=== PATIENT | male | born 1950 | race Two or more races ===

== ENCOUNTER 2025-01-29 19:28 | Emergency (ER) | payer OTHER, MEDICARE, SELFPAY ==
[2025-01-29 19:30] VITALS: BMI 23.6
[2025-01-29 19:39] VITALS: BP 195/109; PULSE 112; RESP 19; TEMP 37.2; O2SAT 98
--- NOTE | 2025-01-29 19:50 | PD.EDRME ---
Rapid Medical Screening Exam RME Arrival date/time: 01/29/25 19:28 Chief Complaint: Nausea/Vomiting/Diarrhea Time Seen by Provider: 01/29/25 19:45 Vital signs: Vital Signs Temperature 98.9 F 01/29/25 19:39 Pulse Rate 112 H 01/29/25 19:39 Respiratory Rate 19 01/29/25 19:39 Blood Pressure 195/109 H 01/29/25 19:39 Pulse Oximetry (%) 98 01/29/25 19:39 Oxygen Delivery Method Room Air 01/29/25 19:39 Vital signs reviewed by provider: Yes RME Narrative: 74-year-old male with a past medical history of colon cancer as well as urostomy bag presents to the ED with a 2 day history of nausea and vomiting. He denies any abdominal pain. He denies any chest pain. He is concerned about dehydration. I have greeted and performed a focused initial assessment of this patient. A comprehensive ED assessment and evaluation of the patient, analysis of all test results, and completion of the medical decision making process will be conducted by additional ED providers.
[2025-01-29] MEDS: ONDANSETRON ODT 4 MG TABRAP PO (20:11)
--- NOTE | 2025-01-29 20:32 | XR_ITS ---
Examination: AP chest single view TECHNIQUE: AP portable upright chest single view Date and time: January 29, 2025 0837 hours INDICATIONS: Nausea vomiting beginning 2 days ago. FINDINGS: Normal heart size Lungs are clear. Right internal jugular Port-A-Cath tip satisfactory position Moderate osteopenia IMPRESSION: No active disease.
--- NOTE | 2025-01-29 20:32 | PD.EDNV ---
Nausea/Vomit./Diarrhea-RME/HPI General Chief complaint: Nausea/Vomiting/Diarrhea Stated complaint: NV STARTED YESTERDAY MORNING Time Seen by Provider: 01/29/25 19:45 Arrival date/time: 01/29/25 19:28 RME / HPI RME / HPI Narrative: 74-year-old male with a past medical history of colon cancer as well as urostomy bag presents to the ED with a 2 day history of nausea and vomiting. He denies any abdominal pain. He denies any chest pain. He is concerned about dehydration. I have greeted and performed a focused initial assessment of this patient. A comprehensive ED assessment and evaluation of the patient, analysis of all test results, and completion of the medical decision making process will be conducted by additional ED providers. This section includes all my notes and documentations, including HPI, PE, and ED course. Jez Cheney MD HPI: 74 y/o male with Hx of Colorectal CA, Bladder CA, and Prostate CA and SHx of Prostatectomy, Cystectomy with Urostomy, and Colectomy over 5 years ago presents with vomiting s/p taking Celexa about 24 hours ago. No abdominal pain, fever, and cough. No diarrhea. Feels dehydrated with dark urine in the urostomy bag. No other complaints. ROS: All negative except as documented in HPI. Physical Exam: General: Alert and oriented. No acute distress when remaining still. High BP noted. Eyes: Conjunctivae and lids clear. ENT: No nasal congestion. Neck: Supple. Heart: Sinus tachycardia noted. Lungs: No respiratory distress. Good air movement. No rhonchi, wheezing, rales. Abdomen: Soft and nontender. Urostomy noted. Normal bowel sounds. No distension. No rebound or guarding. Back: No CVA tenderness. Skin: Warm and dry. Neuro: Alert and oriented X 3. I reviewed all diagnostic test results: My interpretation of the chest x-ray is NAD. Blood tests remarkable for WBC 16.1, Cr 1.4. UA showed positive leukocyte Estrace, 37 RBC, 1704 WBC, and 3+ bacteria. Covid/Influenza: Negative. At this point, diagnoses include: stomach flu, UTI, and uncontrolled hypertension. Treatment here included: IV fluid, Zofran, Rocephin, clonidine, and hydralazine. Significant improvement noted. Recommended outpatient care. Based on my best medical judgment, made decision no further evaluation or treatment indicated at this time. Patient understands and agrees to the discharge instructions customized and printed, see below. Discharge Instructions from Dr. Cheney: 1. After evaluation, you have stomach flu and urinary tract infection. 2. Take Cipro to kill the germs. 3. Your job is to stay hydrated.? Zofran for nausea/vomiting.? Increase oral fluid and maintain clear urine.? If dark or yellow, increase oral fluid. 4. Do not take any medications to stop your diarrhea.? But try to replenish the fluid and electrolytes you are losing. 5. Some good choices are water (but not only water because it will cause electrolyte abnormalities), sports drinks like Gatorade (with less sugar content), coconut water, chicken stock, and other fluid with electrolytes (like Pedialyte). 6. Take clonidine 0.1 mg pills as needed based on SBP (higher number of BP). Check your BP twice daily (about 12 hours apart). If SBP > 140, take one pill. If SBP > 160, take two pills. If SBP > 180, take three pills. If SBP > 200, take four pills. 7. See a private doctor on 01/31/2025 for recheck and further care. Ask to review all test results and official radiology reports, to make sure you receive all necessary follow-ups and monitoring. Ask for help until you are completely better. 8. Seek immediate medical care with worsening or with any concerns. Jez Cheney MD Related Data Previous Rx's ?Medication ?Instructions ?Recorded cefdinir 300 mg capsule 300 mg PO BID #14 caps 01/29/25 ciprofloxacin HCl 500 mg tablet 500 mg PO BID 5 days #10 tabs 01/29/25 (Cipro) ondansetron 4 mg disintegrating 4 mg PO TID PRN nausea and 01/29/25 tablet vomiting 30 days #10 tabs Allergies Allergy/AdvReac Type Severity Reaction Status Date / Time No Known Allergies Allergy Verified 01/29/25 19:34 Review of Systems Review of Systems Systems Reviewed: All systems reviewed, normal except as documented Past Medical History Past Medical History GASTROINTESTINAL: Positive Gastrointestinal Disorders and Colorectal Cancer GENITOURINARY: Positive Genitourinary Disorders and Prostate Cancer OTHER HISTORY: Positive Colorectal Cancer and Prostate Cancer Social History SMOKING STATUS: Never smoker ED Exam Narrative Physical exam: Refer to HPI Course Course Course Narrative: CXR is ordered for determining the etiology of shortness of breath. Quality Measures none Orders Category Date Time Status Bedside COVID-19 Antigen Test NOW Care 01/29/25 20:31 Completed Bedside Influenza A&B Antigen Test NOW Care 01/29/25 20:31 Completed Saline [Insert IV] NOW Care 01/29/25 20:31 Completed XR chest 1V portable Stat Exams 01/29/25 20:32 Completed Amylase Stat Lab 01/29/25 20:49 Completed Bilirubin,Direct Stat Lab 01/29/25 20:49 Completed CBC Stat Lab 01/29/25 20:49 Completed CMP [Comprehensive Metabolic Panel] Stat Lab 01/29/25 20:49 Completed Lipase Stat Lab 01/29/25 20:49 Completed Magnesium Stat Lab 01/29/25 20:49 Completed UA, C/S IF [Urinalysis, C/S if Indicated] Stat Lab 01/29/25 20:36 Completed Urine Culture Stat Lab 01/29/25 20:36 Received Metoprolol Tartrate [Lopressor] Med 01/29/25 20:54 Discontinued 50 mg PO X1 ONE Ondansetron Inj [Zofran Inj] Med 01/29/25 20:31 Discontinued 4 mg IVP X1 ONE Ondansetron Odt [Zofran Odt] Med 01/29/25 20:04 Discontinued 4 mg PO X1 ONE Ringers Lactated 1000 ml [Lactated Ringers] 1,000 ml Med 01/29/25 20:45 Discontinued IV 1,000 mls/hr Ringers Lactated 1000 ml [Lactated Ringers] 1,000 ml Med 01/29/25 21:45 Discontinued IV 1,000 mls/hr cefTRIAXone/D5w 1gm IV premix [Rocephin/D5w 1gm IV Med 01/29/25 21:22 Discontinued premix] 1 g in 50 ml IV X1 cloNIDine HCL [Catapres] Med 01/30/25 00:08 Discontinued 0.2 mg PO X1 ONE cloNIDine HCL [Catapres] Med 01/29/25 20:54 Discontinued 0.3 mg PO X1 ONE hydrALAZINE INJ [Apresoline Inj] Med 01/30/25 00:08 Discontinued 20 mg IVP X1 ONE Vital Signs Vital signs: Vital Signs Temperature 98.9 F 01/29/25 19:39 Pulse Rate 112 H 01/29/25 19:39 Respiratory Rate 19 01/29/25 19:39 Blood Pressure 195/109 H 01/29/25 19:39 Pulse Oximetry (%) 98 01/29/25 19:39 Oxygen Delivery Method Room Air 01/29/25 19:39 Nausea/Vomiting/Diarrhea MDM Narrative MDM Narrative:: Scribe Attestation: IMagaly, am scribing for and in the presence of Dr. Cheney. Provider Notation: Although this document has been carefully reviewed, there may still be some phonetic and other typographical errors.? These errors are purely grammatical due to imperfections in the software program and should not be construed in any way to? compromise the substance of the patient's medical care during this visit. 74 y/o male with Hx of Colorectal CA, Bladder CA, and Prostate CA and SHx of Prostatectomy, Cystectomy with Urostomy, and Colectomy over 5 years ago presents with vomiting s/p taking Celexa about 24 hours ago. No abdominal pain, fever, and cough. No diarrhea. Feels dehydrated with dark urine in the urostomy bag. No other complaints. Patient data External records reviewed:: [facility] previous records (No prior ED records available for review.) Clinical information provided by:: patient Social determinants that could affect healthcare access:: mental health Patient has the following chronic illnesses:: Colorectal Cancer, Prostate Cancer, Bladder Cancer, Prostate Cancer How is presenting disease/condition affected by chronic disease/condition?: exacerbated by Evaluation data The following diagnostics were reviewed and interpreted by me:: lab results and radiology exam(s) Lab and/or radiology exams considered but not ordered:: None Interpretation Summary: I reviewed all diagnostic test results: My interpretation of the chest x-ray is NAD. Blood tests remarkable for WBC 16.1, Cr 1.4. UA showed positive leukocyte Estrace, 37 RBC, 1704 WBC, and 3+ bacteria. Covid/Influenza: Negative. Medications / Prescriptions Medications / Prescriptions considered but not ordered:: None Medication administrations:: Medication Administration History Discontinued Medications Clonidine (Clonidine Hcl 0.1 Mg Tablet) 0.3 mg PO X1 ONE Stop: 01/29/25 20:55 Last Admin: 01/29/25 21:22 Dose: 0.3 mg Documented By: CG Clonidine (Clonidine Hcl 0.1 Mg Tablet) 0.2 mg PO X1 ONE Stop: 01/30/25 00:09 Last Admin: 01/30/25 00:36 Dose: 0.2 mg Documented By: CG Hydralazine HCl (Hydralazine Inj 20 Mg/Ml Vial) 20 mg IVP X1 ONE Stop: 01/30/25 00:09 Last Admin: 01/30/25 00:34 Dose: 20 mg Documented By: CG Lactated Ringer's (Lactated Ringers) 1,000 mls @ 1,000 mls/hr IV .Q1H SAL Stop: 02/28/25 20:44 Last Infusion: 01/30/25 02:30 Dose: Infused Documented By: Admin: 01/30/25 01:30 Dose: 1,000 mls/hr Documented By: Infusion: 01/30/25 01:30 Dose: Infused Documented By: Infusion: 01/29/25 23:52 Dose: 0 mls/hr Documented By: Admin: 01/29/25 22:53 Dose: 1,000 mls/hr Documented By: Infusion: 01/29/25 22:32 Dose: Infused Documented By: Admin: 01/29/25 21:32 Dose: 1,000 mls/hr Documented By: CG Ceftriaxone Sodium/Dextrose (Rocephin/D5w 1gm Iv Premix) 1 g in 50 mls @ 100 mls/hr IV X1 ONE Stop: 01/29/25 21:51 Last Infusion: 01/29/25 23:32 Dose: Infused Documented By: Admin: 01/29/25 22:56 Dose: 100 mls/hr Documented By: CG Lactated Ringer's (Lactated Ringers) 1,000 mls @ 1,000 mls/hr IV .Q1H SAL Stop: 02/28/25 21:44 Metoprolol Tartrate (Metoprolol Tartrate 25 Mg Tablet) 50 mg PO X1 ONE Stop: 01/29/25 20:55 Last Admin: 01/29/25 21:21 Dose: 50 mg Documented By: CG Ondansetron HCl (Ondansetron Odt 4 Mg Tabrap) 4 mg PO X1 ONE; Protocol Stop: 01/29/25 20:05 Last Admin: 01/29/25 20:11 Dose: 4 mg Documented By: VERO Ondansetron HCl (Ondansetron Inj 2 Mg/Ml Inj 2 Ml) 4 mg IVP X1 ONE; Protocol Stop: 01/29/25 20:32 Last Admin: 01/29/25 21:32 Dose: 4 mg Documented By: KSENIA Treatment here included: IV fluid, Zofran, Rocephin, clonidine, and hydralazine. Consultations Consultation(s) initiated? (list below): No Diagnosis Nausea Differential Diagnosis: food poisoning, gastroenteritis, drug-induced nausea and vomiting and dehydration Most likely diagnosis given after review of the tests above:: At this point, diagnoses include: stomach flu, UTI, and uncontrolled hypertension. Admission Indicated Admission indicated?: not indicated Explain why admission is indicated or not indicated:: With significant improvement and no condition needing emergent intervention, there was no indication for admission. Admission Request Was there a request for admission?: No Disposition Plan Disposition Plan: Discharge Discharge Attestation Discharge Attestation: The patient and all family members were given an opportunity to ask questions and understood the discharge instructions. Discharge instructions specifically effects, indications for sooner follow up or return to the emergency department, and the expected course of current diagnosis. Patient condition: Stable Discharge Plan Plan Patient Disposition: HOME (Self Care) Prescriptions/Referrals Prescriptions/Med Rec: New ciprofloxacin HCl [Cipro] 500 mg tablet 500 mg PO BID 5 Days Qty: 10 0RF ondansetron 4 mg tablet,disintegrating 4 mg PO TID PRN (Reason: nausea and vomiting) 30 Days Qty: 10 0RF cefdinir 300 mg capsule 300 mg PO BID Qty: 14 0RF Referrals: No Primary/Family,Physician [Primary Care Provider] - In 1 week Problem List Clinical Impression: Stomach flu, UTI (urinary tract infection), Hypertension Patient/Caregiver Discharge Instructions Discharge Activity: activity as tolerated Education Materials: ED Hypertension, Established, ED Bladder Infection, Male (Adult), ED Gastroenteritis, Viral (Adult) Additional Instructions: Discharge Instructions from Dr. Cheney: 1. After evaluation, you have stomach flu and urinary tract infection. 2. Take Cipro to kill the germs. 3. Your job is to stay hydrated.? Zofran for nausea/vomiting.? Increase oral fluid and maintain clear urine.? If dark or yellow, increase oral fluid. 4. Do not take any medications to stop your diarrhea.? But try to replenish the fluid and electrolytes you are losing. 5. Some good choices are water (but not only water because it will cause electrolyte abnormalities), sports drinks like Gatorade (with less sugar content), coconut water, chicken stock, and other fluid with electrolytes (like Pedialyte). 6. Take clonidine 0.1 mg pills as needed based on SBP (higher number of BP). Check your BP twice daily (about 12 hours apart). If SBP > 140, take one pill. If SBP > 160, take two pills. If SBP > 180, take three pills. If SBP > 200, take four pills. 7. See a private doctor on 01/31/2025 for recheck and further care. Ask to review all test results and official radiology reports, to make sure you receive all necessary follow-ups and monitoring. Ask for help until you are completely better. 8. Seek immediate medical care with worsening or with any concerns. Print Language: Polish Stand Alone Forms: [employer] Info., Patient Portal Info Letter
[2025-01-29 20:34] VITALS: BP 198/133; PULSE 110; RESP 19; TEMP 37.2; O2SAT 98
[2025-01-29 20:42] LABS: Collection Type, Urine Clean Catch
[2025-01-29 20:57] LABS: Basophils # (Auto) 0.0 Thou/mm3 (0.0-0.2); Basophils % (Auto) 0 % (0-2.5); Eosinophils # (Auto) 0.0 Thou/mm3 (0.0-0.5); Eosinophils % (Auto) 0 % (0-10); Hematocrit 41.0 % (41.0-53.0); Hemoglobin 14.0 g/dL (13.5-16.0); Immature Granulocytes Auto 0.11 Thou/mm3 (0.00-0.00); Lymphocytes # (Auto) 0.4 Thou/mm3 (1.0-4.8); Lymphocytes % (Auto) 2 % (10-50); Mean Corpuscular HGB Conc 34.1 g/dl (31.0-37.0); Mean Corpuscular Hemoglobin 30.2 pg (25.0-35.0); Mean Corpuscular Volume 89 fL (80-100); Monocytes # (Auto) 0.8 Thou/mm3 (0.0-0.8); Monocytes % (Auto) 5 % (0-12); Neutrophils # (Auto) 14.7 Thou/mm3 (1.8-7.7); Neutrophils % (Auto) 92 % (37-80); Nucleated Red Blood Cell # 0.00 Thou/mm3 (0.00-0.00); Nucleated Red Blood Cell % 0 /100 WBC (0); Platelet Count 174 Thou/mm3 (140-440); RDW Standard Deviation 43.8 fL (35.1-43.9); Red Blood Count 4.63 Miln/mm3 (4.50-5.90); White Blood Count 16.1 Thou/mm3 (3.8-10.6)
[2025-01-29 21:07] LABS: Bacteria,Urine 3+; Bilirubin,Urine Negative (Negative); Blood,Urine 2+ (Negative); Color,Urine Yellow (Lt Yel-Yel); Glucose, Urine Negative (Negative); Hyaline Casts,Urine 1 /hpf (0-1); Ketones,Urine Negative (Negative); Leukocyte Esterase,Urine Positive (Negative); Nitrite,Urine Positive (Negative); PH,Urine 6.5 (5.0-7.0); Protein,Urine 1+ (Neg - Trace); RBC,Urine 37 /hpf (0-3); Specific Gravity,Urine 1.015 (1.001-1.035); Squamous Epithelial Cell,Urine 1 /hpf (0-5); Urobilinogen,Urine Negative mg/dL (0.0-1.0); WBC,Urine 1704 /hpf (0-5)
[2025-01-29 21:18] LABS: Clarity,Urine Turbid (Clear/Hazy); Culture Indicated,Urine Yes
[2025-01-29 21:21] VITALS: BP 221/126; PULSE 102
[2025-01-29] MEDS: METOPROLOL TARTRATE 25 MG TABLET 50 MG PO (21:21)
[2025-01-29 21:22] VITALS: BP 221/126; PULSE 102
[2025-01-29 21:26] LABS: Alanine Aminotransferase 13 U/L (10-49); Albumin, Serum 4.9 gm/dL (3.4-4.8); Albumin/Globulin Ratio 1.4 (1.2-2.2); Alkaline Phosphatase 122 U/L (46-116); Anion Gap 17 (7-16); Aspartate Amino Transferase 20 U/L (0-34); BUN/Creatinine Ratio 15 Ratio (12-20); Bilirubin,Direct 0.5 mg/dL (0.0-0.3); Bilirubin,Total 1.7 mg/dL (0.3-1.2); Blood Urea Nitrogen 21 mg/dL (9-23); Calcium 9.7 mg/dL (8.3-10.6); Calcium (Corrected) 9.7 mg/dL (8.5-10.1); Carbon Dioxide 17.5 mMol/L (20.0-31.0); Chloride 105 mMol/L (98-107); Creatinine (Component) 1.4 mg/dL (0.6-1.3); Estimated Creatinine Clearance 48.5 mL/min (>60); Globulin 3.5 gm/dL (2.3-3.5); Glucose 215 mg/dL (74-106); Magnesium 1.9 mg/dL (1.6-2.6); Osmolality,Calculated 286 (275-295); Potassium 3.6 mMol/L (3.4-5.1); Sodium 139 mMol/L (136-145); Total Protein 8.4 gm/dL (5.7-8.2); eGFR 53 See Note
[2025-01-29] MEDS: ONDANSETRON INJ 2 MG/ML INJ 2 ML 4 MG IVP (21:32)
[2025-01-29] MEDS: RINGERS LACTATED 1000 ML 1,000 ML IV ×2 (21:32→22:53)
[2025-01-29] MEDS: cefTRIAXone/D5w 1gm IV premix 1 G/50 ML BAG IV (22:56)
[2025-01-29 23:29] VITALS: BP 176/106; PULSE 71; RESP 16; TEMP 36.9
[2025-01-30 00:18] LABS: Amylase 44 U/L (30-118); Lipase 33 U/L (12-53)
[2025-01-30 00:29] VITALS: BP 142/65; PULSE 67; RESP 18; TEMP 36.4; O2SAT 100
[2025-01-30 00:34] VITALS: BP 196/104; PULSE 79
[2025-01-30] MEDS: hydrALAZINE INJ 20 MG/ML VIAL IVP (00:34)
[2025-01-30 00:36] VITALS: BP 196/104; PULSE 79
[2025-01-30] MEDS: RINGERS LACTATED 1000 ML 1,000 ML IV (01:30)
== END 2025-01-30 02:42 | disposition home or self-care (01) ==
PROVIDERS: Emergency Provider Emergency Medicine
DX: A08.4 Viral intestinal infection, unspecified (principal); N39.0 Urinary tract infection, site not specified; I10 Essential (primary) hypertension
CPT/HCPCS: 36415; 71045; 80053; 81001; 82150; 82248; 83690; 83735; 85025; 87077; 87086; 87186; 87400; 87811; 96361; 96365; 96375; 99283; J0360; J0696; J2405; J7120; Q0162; A9270